=== PATIENT | male | born 1985 | race Two or more races ===

== ENCOUNTER 2019-06-19 13:18 | Outpatient (CLI) | payer BC ==
--- NOTE | 2019-06-19 14:19 | Diagnostic Imaging Report ---
Indication:Scrotal pain Technique: Real time grayscale and duplex Doppler imaging of the scrotum performed. Comparison: None Findings: The size, contour, and echogenicitiy of the testis appear normal bilaterally. There is no testicular mass or evidence of torsion. There is good doppler evidence of blood flow within both testes. Epididimi are unremarkable. Small bilateral hydroceles are present. There is a 3 mm cyst in the left epididymis. Right testis measures 5.1 x 3.2 x 2.3 cm. Left testis 5.2 x 3.4 x 2.4 cm. IMPRESSION: No acute findings. Small bilateral hydroceles Tiny left epididymal cyst
== END 2019-06-19 15:18 | disposition home or self-care (01) ==
LOC: ULS 13:18
DX: N50.82 Scrotal pain (principal); N43.3 Hydrocele, unspecified; N50.3 Cyst of epididymis
CPT/HCPCS: 76870